=== PATIENT | female | born 1985 | race Caucasian/White ===

== ENCOUNTER 2016-09-04 23:20 | Emergency (ER) | payer OTHER ==
[2016-09-04 23:37] VITALS: BP 123/76; PULSE 87; TEMP 97; BMI 27.6
--- NOTE | 2016-09-05 01:04 | PDOC ---
History of Present Illness <Vickie Quiñones - Last Filed: 09/05/16 01:57> - History of Present Illness Initial Comments: 09/05/16 02:21 The patient is a 31 year old female, with no significant past medical history, who presents to the emergency department with discomfort with moving bowels about an hour prior to her ED arrival. She states she attempted to move her bowels and felt as if the stool was trapped in her rectal vault. The patient reports her last bowel movement was normal on 09/03/16. She denies abdominal pain. 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 She denies chest pain, shortness of breath, headache and dizziness. She denies fever, chills, nausea, vomit, diarrhea. She denies dysuria, frequency, urgency and hematuria. Allergies: NKDA <Pamela Walton - Last Filed: 09/05/16 02:23> - General Chief Complaint: Constipation Stated Complaint: CONSTIPATION Time Seen by Provider: 09/05/16 00:59 Past History - Past Medical History Anemia: No Asthma: No Cancer: No Cardiac Disorders: No CVA: No COPD: No CHF: No Dementia: No Diabetes: No GI Disorders: No Disorders: No HTN: No Hypercholesterolemia: No Liver Disease: No Seizures: No Thyroid Disease: No - Immunization History Immunization Up to Date: Yes - Psycho/Social/Smoking Cessation Hx Anxiety: No Suicidal Ideation: No Smoking History: Never smoked Have you smoked in the past 12 months: No Hx Alcohol Use: No Drug/Substance Use Hx: No Substance Use Type: None Hx Substance Use Treatment: No <Vickie Quiñones - Last Filed: 09/05/16 01:57> <Pamela Walton - Last Filed: 09/05/16 02:23> - Past Medical History Allergies/Adverse Reactions: Allergies Allergy/AdvReac Type Severity Reaction Status Date / Time No Known Drug Allergies Allergy Verified 09/04/16 23:27 Home Medications: Ambulatory Orders NK [No Known Home Medication] 09/05/16 Review of Systems - Review of Systems Able to Perform ROS?: Yes Comments:: 09/05/16 02:21 GENERAL/CONSTITUTIONAL: No fever or chills. No weakness. HEAD, EYES, EARS, NOSE AND THROAT: No change in vision. No ear pain or discharge. No sore throat. CARDIOVASCULAR: No chest pain or shortness of breath. RESPIRATORY: No cough, wheezing, or hemoptysis. GASTROINTESTINAL: (+) discomfort and constipation. No nausea, vomiting, diarrhea GENITOURINARY: No dysuria, frequency, or change in urination. MUSCULOSKELETAL: No joint or muscle swelling or pain. No neck or back pain. SKIN: No rash NEUROLOGIC: No headache, vertigo, loss of consciousness, or change in strength/ sensation. ENDOCRINE: No increased thirst. No abnormal weight change. HEMATOLOGIC/LYMPHATIC: No anemia, easy bleeding, or history of blood clots. ALLERGIC/IMMUNOLOGIC: No hives or skin allergy. <Pamela Walton - Last Filed: 09/05/16 02:23> *Physical Exam - Vital Signs Last Vital Signs Temp Pulse Resp BP Pulse Ox 97 F L 87 18 123/76 99 09/04/16 23:24 09/04/16 23:24 09/04/16 23:24 09/04/16 23:24 09/04/16 23:24 <Vickie Quiñones - Last Filed: 09/05/16 01:57> - Vital Signs Last Vital Signs Temp Pulse Resp BP Pulse Ox 97 F L 87 18 123/76 99 09/04/16 23:24 09/04/16 23:24 09/04/16 23:24 09/04/16 23:24 09/04/16 23:24 - Physical Exam Comments: 09/05/16 02:22 GENERAL: Awake, alert, and fully oriented, in no acute distress HEAD: No signs of trauma EYES: PERRLA, EOMI, sclera anicteric, conjunctiva clear ENT: Auricles normal inspection, hearing grossly normal, nares patent, oropharynx clear without exudates. Moist mucosa NECK: Normal ROM, supple, no lymphadenopathy, JVD, or masses LUNGS: Breath sounds equal, clear to auscultation bilaterally. No wheezes, and no crackles HEART: Regular rate and rhythm, normal S1 and S2, no murmurs, rubs or gallops ABDOMEN: Soft, nontender, normoactive bowel sounds. No guarding, no rebound. No masses EXTREMITIES: Normal range of motion, no edema. No clubbing or cyanosis. No cords, erythema, or tenderness NEUROLOGICAL: Cranial nerves II through XII grossly intact. Normal speech, normal gait SKIN: Warm, Dry, normal turgor, no rashes or lesions noted. <Pamela Walton - Last Filed: 09/05/16 02:23> ED Treatment Course - Medications Given in the ED: ED Medications Discontinued Medications Generic Name Dose Route Start Last Admin Trade Name Beronica PRN Reason Stop Dose Admin Glycerin 1 each 09/05/16 01:17 09/05/16 01:58 Glycerin Suppository Adult - [place] 09/05/16 01:18 1 each ONCE ONE Administration Polyethylene Glycol 17 gm 09/05/16 01:06 09/05/16 01:58 Miralax (For Daily Use) - PO 09/05/16 01:07 17 gm ONCE ONE Administration <Pamela Walton - Last Filed: 09/05/16 02:23> *DC/Admit/Observation/Transfer - Discharge Dispostion Admit: No <Vickie Quiñones - Last Filed: 09/05/16 01:57> - Attestations Scribe Attestion: 09/05/16 02:22 Documentation prepared by Pamela Walton, acting as manager medical writing for Vickie Quiñones MD <Pamela Walton - Last Filed: 09/05/16 02:23> Diagnosis at time of Disposition: Constipation - Discharge Dispostion Disposition: HOME Condition at time of disposition: Stable - Referrals Referrals: Zakia Reyes MD [Primary Care Provider] - - Patient Instructions Printed Discharge Instructions: DI for Constipation - Post Discharge Activity Work/School Note: Back to Work
[2016-09-05] MEDS ORDERED: POLYETHYLENE GLYCOL 3350 119 GM BTL PO ONE (01:06)
[2016-09-05] MEDS ORDERED: GLYCERIN 1 RECTAL SUPPOSITORY, ADULT PR ONE (01:17)
[2016-09-05] MEDS ORDERED: GLYCERIN 1 RECTAL SUPPOSITORY, ADULT RC ONE (01:53)
== END 2016-09-05 02:32 | disposition home or self-care (01) ==
LOC: JER 23:20
DX: K59.00 Constipation, unspecified (principal)
CPT/HCPCS: 99283-25

== ENCOUNTER 2016-12-02 21:10 | Emergency (ER) | payer OTHER ==
[2016-12-02 21:34] VITALS: BP 119/73; PULSE 79; TEMP 98.2; BMI 28.5
--- NOTE | 2016-12-02 22:08 | PDOC ---
History of Present Illness - General History Source: Patient Exam Limitations: No Limitations - History of Present Illness Travel History: No Initial Comments: 12/02/16 22:26 31-year-old female presents to the emergency department complaining of suprapubic pressure described as 3/10 intermittent nonradiating discomfort. Pain is exacerbated when sitting and touching her suprapubic area and alleviated at rest. Patient denies nausea/vomiting, fever/chills, abdominal pains, flank pains, urinary symptoms: Frequency/urgency/hesitancy or hematuria. Patient denies any other complaints. Timing/Duration: reports: intermittent <Lito Reynolds - Last Filed: 12/03/16 02:30> - History of Present Illness Initial Comments: 12/03/16 03:17 Pt seen by Midlevel Provider under my direct supervision. Documentation has been prepared under my direction and personally reviewed by me in its entirety. I attest that this document accurately reflects all work, treatment, procedures and medical decision-making performed. I agree with plan as outlined by Midlevel Provider. <Sharad Diane I - Last Filed: 12/03/16 03:17> - General Chief Complaint: Pain Stated Complaint: ABD PAIN Time Seen by Provider: 12/02/16 21:49 Past History - Past Medical History Anemia: No Asthma: No Cancer: No Cardiac Disorders: No CVA: No COPD: No CHF: No Dementia: No Diabetes: No GI Disorders: No Disorders: No HTN: No Hypercholesterolemia: No Liver Disease: No Seizures: No Thyroid Disease: No Other medical history: Pt denies - Immunization History Immunization Up to Date: Yes - Psycho/Social/Smoking Cessation Hx Anxiety: No Suicidal Ideation: No Smoking History: Never smoked Have you smoked in the past 12 months: No Information on smoking cessation initiated: No Hx Alcohol Use: No Drug/Substance Use Hx: No Substance Use Type: None Hx Substance Use Treatment: No <Lito Reynolds - Last Filed: 12/03/16 02:30> <Sharad Diane I - Last Filed: 12/03/16 03:17> - Past Medical History Allergies/Adverse Reactions: Allergies Allergy/AdvReac Type Severity Reaction Status Date / Time No Known Drug Allergies Allergy Verified 12/02/16 21:31 Home Medications: Ambulatory Orders NK [No Known Home Medication] 06/19/17 Review of Systems - Review of Systems Able to Perform ROS?: Yes Comments:: 12/03/16 02:30 CONSTITUTIONAL: Absent: fever, chills, diaphoresis, generalized weakness, malaise, loss of appetite HEENT: Absent: rhinorrhea, nasal congestion, throat pain, throat swelling, difficulty swallowing, mouth swelling, ear pain, eye pain, visual Changes CARDIOVASCULAR: Absent: chest pain, loss of consciousness, palpitations, irregular heart rate, peripheral edema RESPIRATORY: Absent: cough, shortness of breath, dyspnea with exertion, orthopnea, wheezing, stridor, hemoptysis GASTROINTESTINAL: +pelvic pain Absent: abdominal pain, abdominal distension, nausea, vomiting, diarrhea, constipation, melena, hematochezia GENITOURINARY: Absent: dysuria, frequency, urgency, hesitancy, hematuria, flank pain, genital pain MUSCULOSKELETAL: Absent: myalgia, arthralgia, joint swelling SKIN: Absent: rash, itching, pallor HEMATOLOGIC/IMMUNOLOGIC: Absent: easy bleeding, easy bruising, lymphadenopathy, frequent infections Is the patient limited [place] proficient: No <Lito Reynolds - Last Filed: 12/03/16 02:30> *Physical Exam - Vital Signs Last Vital Signs Temp Pulse Resp BP Pulse Ox 98.2 F 79 20 119/73 99 12/02/16 21:32 12/02/16 21:32 12/02/16 21:32 12/02/16 21:32 12/02/16 21:32 - Physical Exam Comments: 12/03/16 02:30 GENERAL: Well developed, well nourished. Awake and alert. No acute distress. HEENT: Normocephalic, atraumatic. PERRLA, EOMI. No conjunctival pallor. Sclera are non- icteric. Moist mucous membranes. Oropharynx is clear. NECK: Supple. Full ROM. No JVD. Carotid pulses 2+ and symmetric, without bruits. No thyromegaly. No lymphadenopathy. CARDIOVASCULAR: Regular rate and rhythm. No murmurs, rubs, or gallops. Distal pulses are 2+ and symmetric. PULMONARY: No evidence of respiratory distress. Lungs clear to auscultation bilaterally. No wheezing, rales or rhonchi. ABDOMINAL: Soft. Non-tender. Non-distended. No rebound or guarding. No organomegaly. Normoactive bowel sounds. MUSCULOSKELETAL Normal range of motion at all joints. No bony deformities or tenderness. No CVA tenderness. EXTREMITIES: No cyanosis. No clubbing. No edema. No calf tenderness. SKIN: Warm and dry. Normal capillary refill. No rashes. No jaundice. NEUROLOGICAL: Alert, awake, appropriate. Cranial nerves 2-12 intact. No deficits to light touch and temperature in face, upper extremities and lower extremities. No motor deficits in the in face, upper extremities and lower extremities. Normoreflexic in the upper and lower extremities. Normal speech. Toes are down- going bilaterally. Gait is normal without ataxia. PSYCHIATRIC: Cooperative. Good eye contact. Appropriate mood and affect. <Lito Reynolds - Last Filed: 12/03/16 02:30> - Vital Signs Last Vital Signs Temp Pulse Resp BP Pulse Ox 98.2 F 79 20 119/73 99 12/02/16 21:32 12/02/16 21:32 12/02/16 21:32 12/02/16 21:32 12/02/16 21:32 <Sharad Diane I - Last Filed: 12/03/16 03:17> ED Treatment Course - RADIOLOGY Radiograph Interpretation: 12/03/16 01:01 Transvaginal US: The retroverted uterus is normal size and exhibits normal contours 10 echotexture and measures at 6.3 x 4.15 5.3 and AP, transverse and cranial caudal access. An IUD is well seated within the endometrial canal. The endometrial stripe measures 5.1 mm thickness. There is no fluid within the posterior cul-de-sac. There are no ovarian mass. Multiple follicles noted within each ovary. Ovarian arterial blood flow is normal by color and spectral Doppler assessment. <Lito Reynolds - Last Filed: 12/03/16 02:30> - ADDITIONAL ORDERS Additional order review: Laboratory Results 12/02/16 22:41 Urine Color Yellow Urine Appearance Slcloudy Urine pH 6.0 Urine Protein Negative Urine Glucose (UA) Negative Urine Ketones Negative Urine Blood Negative Urine Nitrite Negative Urine Bilirubin Negative Urine Urobilinogen Negative Urine RBC 11 Urine WBC 21 Ur Epithelial Cells Moderate Urine Bacteria Rare Urine Mucus Rare Urine HCG, Qual Negative <Sharad Diane I - Last Filed: 12/03/16 03:17> Progress Note - Progress Note Progress Note: 0010hrs: Patient states she feels better and wishes to go home. <Luis Reynoldsui - Last Filed: 12/03/16 02:30> *DC/Admit/Observation/Transfer - Discharge Dispostion Admit: No <GailLito - Last Filed: 12/03/16 02:30> <Sharad Diane I - Last Filed: 12/03/16 03:17> Diagnosis at time of Disposition: Pelvic pain - Discharge Dispostion Disposition: HOME Condition at time of disposition: Stable - Referrals Referrals: Alessandra Hubbard MD [Primary Care Provider] - Tod Mccracken MD [Staff Physician] - - Patient Instructions Printed Discharge Instructions: DI for Pelvic Pain Additional Instructions: Follow-up with the medical lab director listed on your discharge. Return back to the emergency department for severe/persistent or worsening symptoms.
[2016-12-02 22:58] LABS: URINE APPEARANCE SLCLOUDY; URINE BILIRUBIN NEGATIVE (NEGATIVE); URINE BLOOD NEGATIVE (NEGATIVE); URINE COLOR YELLOW; URINE GLUCOSE (UA) NEGATIVE (NEGATIVE); URINE KETONE NEGATIVE (NEGATIVE); URINE NITRITE NEGATIVE (NEGATIVE); URINE PROTEIN NEGATIVE (NEGATIVE); URINE UROBILINOGEN NEGATIVE mg/dL (0.2-1.0)
[2016-12-02 23:26] LABS: URINE LEUK ESTERASE 2+ (NEGATIVE)
[2016-12-02 23:28] LABS: URINE BACTERIA RARE /hpf (NONE SEEN); URINE MUCUS RARE; URINE RBC 11 /hpf (0-3); URINE WBC 21 /hpf (3-5)
== END 2016-12-03 01:39 | disposition home or self-care (01) ==
LOC: JER 21:10
DX: R10.2 Pelvic and perineal pain (principal)
CPT/HCPCS: 76830-TC; 81003; 81015; 84703; 87086; 99281-25